=== PATIENT | female | born 1945 | race African-American/Black ===

== ENCOUNTER 2019-02-24 21:55 | Emergency (ER) | payer MEDICARE, MEDICAID ==
[~2019-02-24] VITALS: Ht 152.4 cm; Wt 70.0 kg
[~2019-02-24 21:55] MED LIST: AMLODIPINE10 MG OR; ANTIVERT25 MG PO; HYDROCHLOROT12.5 MG OR; HYDROCO/APAP1 T10 OR; LORTAB 10 OR; MELOXICAM15 MG OR; PLAVIX75 MG OR; SILVADENE1 % EX; SIMVASTATIN20 MG OR; ULTRAM50 MG OR; ZOFRAN ODT4 MG PO
[2019-02-24 23:09] VITALS: BP 168/80
== END 2019-02-24 23:20 | disposition home or self-care (01) ==
LOC: ED 21:55
DX: S80.12XA Contusion of left lower leg, initial encounter (principal); I10 Essential (primary) hypertension; W11.XXXA Fall on and from ladder, initial encounter; Y93.G3 Activity, cooking and baking; Y92.000 Kitchen of unspecified non-institutional (private) residence as the place of occurrence of the external cause

== ENCOUNTER 2019-09-01 20:15 | Inpatient (IN) | payer MEDICARE, MEDICAID ==
[~2019-09-01] VITALS: Ht 160 cm; Wt 69.5 kg
[2019-09-01 21:47] LABS: HEMATOCRIT 41.2 % (37.0-47.0); HEMOGLOBIN 13.6 g/dl (12.0-16.0); IMMATURE GRANULOCYTES 0.4 % (0.0-5.0); MEAN CELL VOLUME 85.7 fL CALC (80.0-100.0); MEAN CORPUSCULAR HGB 28.3 pG CALC (26.0-32.0); NEUT# 3.82 thou/uL (2.00-7.15); RED BLOOD COUNT 4.81 mill/uL (4.20-5.60); RED CELL DISTRI WIDTH 14.6 % (11.5-15.5)
[2019-09-01 22:02] LABS: ALBUMIN 4.4 g/dL (3.2-5.0); ALKALINE PHOSPHATASE 135 u/l (38-126); ANION GAP 13 (6-22 (CALC)); BILIRUBIN, TOTAL 0.5 mg/dL (0.0-1.4); BUN 19 mg/dL (8-23); BUN/CREATININE RATIO 15 (12-20 (CALC)); CARBON DIOXIDE 27 mmol/l (22-30); CHLORIDE 107 mmol/l (95-108); CREATININE 1.3 mg/dL (0.5-1.0); GFR 40 ML/MIN (>=60 (CALC)); GFR FOR AFR.AMER. 48 ML/MIN (>=60 (CALC)); POTASSIUM 4.1 mmol/l (3.5-5.1); SGOT/AST 39 u/l (9-36); SODIUM 143 mmol/l (137-146); TOTAL PROTEIN 7.9 g/dL (6.3-8.2)
[2019-09-01 22:04] LABS: PROTHROMBIN TIME 10.7 SECONDS (9.0-12.5)
[2019-09-02] VITALS (21 sets, daily range): BP systolic 127–179; BP diastolic 54–93
[2019-09-02] MEDS ORDERED: GABAPENTIN100 MG PO (02:16)
[2019-09-02] MEDS ORDERED: CARVEDILOL3.125 MG PO (02:17)
[2019-09-02] MEDS ORDERED: METOPROLOL SUCC50 MG PO (02:19)
[2019-09-02] MEDS ORDERED: ATORVASTATIN CA40 MG PO (02:21)
[2019-09-02] MEDS ORDERED: TIZANIDINE4 MG PO (02:21)
[2019-09-02] MEDS ORDERED: ZESTRIL40 MG PO (02:22)
[2019-09-02] MEDS ORDERED: PLAVIX75 MG PO (02:22)
[2019-09-02] MEDS ORDERED: NAPROSYN250 MG PO (02:24)
[2019-09-02 04:28] LABS: HEMATOCRIT 38.8 % (37.0-47.0); HEMOGLOBIN 12.9 g/dl (12.0-16.0); IMMATURE GRANULOCYTES 0.4 % (0.0-5.0); MEAN CORPUSCULAR HGB 28.6 pG CALC (26.0-32.0); MEAN CORPUSCULAR HGB CONC 33.2 g/L CALC (32.0-36.0); NEUT# 4.78 thou/uL (2.00-7.15); RED BLOOD COUNT 4.51 mill/uL (4.20-5.60); RED CELL DISTRI WIDTH 14.6 % (11.5-15.5)
[2019-09-02] MEDS ORDERED: PERCOCET 5/325M1 TAB PO (05:56)
[2019-09-03] VITALS (7 sets, daily range): BP systolic 142–178; BP diastolic 71–86
[2019-09-03] MEDS ORDERED: AMLODIPINE BESYL5 MG PO (08:58)
== END 2019-09-03 10:39 | disposition home or self-care (01) | DRG 305 ==
LOC: ED 20:15 → ED-I 23:15 → ED 09-02 00:35 → ICU 09-02 00:36
PROVIDERS: Emergency Medicine; ADMIT Internal Medicine; ATTEND Internal Medicine
PROC: 2Y41X5Z Packing of Nasal Region using Packing Material (ICD-10-PCS; principal; 2019-09-01)
DX: I16.0 Hypertensive urgency (principal); I10 Essential (primary) hypertension; R04.0 Epistaxis; I51.7 Cardiomegaly; F17.200 Nicotine dependence, unspecified, uncomplicated; M54.9 Dorsalgia, unspecified; G89.29 Other chronic pain; T46.5X6A Underdosing of other antihypertensive drugs, initial encounter; Z91.128 Patient's intentional underdosing of medication regimen for other reason; Z79.02 Long term (current) use of antithrombotics/antiplatelets

== ENCOUNTER 2020-05-03 00:22 | Emergency (ER) | payer MEDICARE, MEDICAID ==
[~2020-05-03] VITALS: Ht 157.5 cm; Wt 65.9 kg
[~2020-05-03 00:22] MED LIST changes: +AMLODIPINE BESYL5 MG PO; +ATORVASTATIN CA40 MG PO; +CARVEDILOL3.125 MG PO; +GABAPENTIN100 MG PO; +METOPROLOL SUCC50 MG PO; +NAPROSYN250 MG PO; +PERCOCET 5/325M1 TAB PO; +PLAVIX75 MG PO; +TIZANIDINE4 MG PO; +ZESTRIL40 MG PO
[2020-05-03] MEDS ORDERED: NAPROXEN DR500 MG PO (01:17)
[2020-05-03] MEDS ORDERED: COREG3.125 MG PO (01:18)
[2020-05-03 02:49] VITALS: BP 123/69
== END 2020-05-03 02:49 | disposition home or self-care (01) ==
LOC: ED 00:22
DX: I10 Essential (primary) hypertension (principal); R04.0 Epistaxis; F17.200 Nicotine dependence, unspecified, uncomplicated

== ENCOUNTER 2020-11-20 09:42 | Emergency (ER) | payer MEDICARE, MEDICAID ==
[~2020-11-20 09:42] MED LIST changes: +COREG3.125 MG PO; +NAPROXEN DR500 MG PO
[2020-11-20] MEDS ORDERED: CLOPIDOGREL75 MG PO (10:23)
[2020-11-20] MEDS ORDERED: NORVASC5 M1 PO (10:24)
[2020-11-20] MEDS ORDERED: PERCOCET 5/321 COMBO PO (10:25)
[2020-11-20 10:34] LABS: HEMATOCRIT 40.2 % (37.0-47.0); HEMOGLOBIN 13.1 g/dl (12.0-16.0); IMMATURE GRANULOCYTES 0.3 % (0.0-5.0); MEAN CELL VOLUME 87.4 fL CALC (80.0-100.0); MEAN CORPUSCULAR HGB 28.5 pG CALC (26.0-32.0); MEAN CORPUSCULAR HGB CONC 32.6 g/dL CAL (32.0-36.0); NEUT# 3.65 thou/uL (2.00-7.15); RED BLOOD COUNT 4.6 mill/uL (4.20-5.60); RED CELL DISTRI WIDTH 14.3 % (11.5-15.5)
[2020-11-20 10:55] LABS: ACT PARTIAL THROMBO TIME 23.7 SECONDS (20.0-32.5); PROTHROMBIN TIME 10.6 SECONDS (9.0-12.5)
[2020-11-20 11:35] VITALS: BP 159/79
[2021-03-25] MEDS ORDERED: PERCOCET 5/321 COMBO PO (09:49)
== END 2020-11-20 11:35 | disposition home or self-care (01) ==
LOC: ED 09:42
DX: R04.0 Epistaxis (principal); I10 Essential (primary) hypertension; E78.5 Hyperlipidemia, unspecified; I25.10 Atherosclerotic heart disease of native coronary artery without angina pectoris; F17.200 Nicotine dependence, unspecified, uncomplicated

== ENCOUNTER 2021-05-05 06:15 | Day surgery (SDC) | payer MEDICARE, MEDICAID ==
[~2021-05-05] VITALS: Ht 157.5 cm; Wt 68.0 kg
[~2021-05-05 06:15] MED LIST changes: +CLOPIDOGREL75 MG PO; +NORVASC5 M1 PO; +PERCOCET 5/321 COMBO PO
[2021-05-05 08:13] VITALS: BP 193/97
[2021-05-05] MEDS ORDERED: PERCOCET1 TA4 PO (08:36)
== END 2021-05-05 09:00 | disposition home or self-care (01) ==
LOC: ORM 06:15
PROVIDERS: ATTEND Anesthesiology Pain Medicine
DX: M54.59 Other low back pain (principal); M47.817 Spondylosis without myelopathy or radiculopathy, lumbosacral region; M51.36 Other intervertebral disc degeneration, lumbar region

== ENCOUNTER 2021-10-14 17:51 | Observation (INO) | payer MEDICARE, MEDICAID ==
[~2021-10-14] VITALS: Ht 157.5 cm; Wt 66.0 kg
[2021-10-14] VITALS (9 sets, daily range): BP systolic 107–217; BP diastolic 56–126
[~2021-10-14 17:51] MED LIST changes: +PERCOCET1 TA4 PO
[2021-10-14 18:43] LABS: HEMATOCRIT 41.8 % (37.0-47.0); HEMOGLOBIN 13.6 g/dl (12.0-16.0); IMMATURE GRANULOCYTES 0.1 % (0.0-5.0); MEAN CELL VOLUME 89.5 fL CALC (80.0-100.0); MEAN CORPUSCULAR HGB 29.1 pG CALC (26.0-32.0); MEAN CORPUSCULAR HGB CONC 32.5 g/dL CAL (32.0-36.0); NEUT# 3.31 thou/uL (2.00-7.15); RED BLOOD COUNT 4.67 mill/uL (4.20-5.60); RED CELL DISTRI WIDTH 14.5 % (11.5-15.5)
[2021-10-14 18:51] LABS: ALBUMIN 4.2 g/dL (3.2-5.0); ALKALINE PHOSPHATASE 133 u/l (38-126); ANION GAP 11 (6-22 (CALC)); BUN 17 mg/dL (8-23); BUN/CREATININE RATIO 13 (12-20 (CALC)); CARBON DIOXIDE 28 mmol/l (22-30); CHLORIDE 111 mmol/l (95-108); CREATININE 1.3 mg/dL (0.5-1.0); GFR 40 ML/MIN (>=60 (CALC)); GFR FOR AFR.AMER. 48 ML/MIN (>=60 (CALC)); POTASSIUM 3.9 mmol/l (3.5-5.1); SGOT/AST 45 u/l (9-36); SODIUM 146 mmol/l (137-146); TOTAL PROTEIN 7.8 g/dL (6.3-8.2)
[2021-10-14 18:54] LABS: BILIRUBIN, TOTAL 0.3 mg/dL (0.0-1.4)
[2021-10-14 19:03] LABS: MYOGLOBIN 26 ng/mL (0 - 62)
[2021-10-14 21:22] LABS: URINE BILIRUBIN - DIPSTICK NEGATIVE (NEGATIVE); URINE BLOOD DIPSTICK MODERATE (NEGATIVE); URINE COLOR YELLOW; URINE GLUCOSE - DIPSTICK NEGATIVE (NEGATIVE); URINE KETONE NEGATIVE (NEGATIVE); URINE LEUK ESTERASE NEGATIVE (NEGATIVE); URINE NITRITE - DIPSTICK NEGATIVE (Negative); URINE PROTEIN - DIPSTICK NEGATIVE (NEG-TRACE); URINE UROBILINOGEN - DIPSTICK 0.2 E.U./dL (0.2)
[2021-10-14 21:30] LABS: URINE BACTERIA FEW hpf; URINE SQUAMOUS EPITHELIAL CELL MODERATE EPI/hpf (0-FEW); URINE WBC 0-2 WBC/hpf (0-5)
[2021-10-15] VITALS (8 sets, daily range): BP systolic 139–186; BP diastolic 61–78
[2021-10-15 06:30] LABS: CHOLESTEROL HDL RATIO 1.9 (<4.4 (CALC)); CREATININE 1.3 mg/dL (0.5-1.0); MAGNESIUM 2.2 mg/dL (1.6-2.3)
[2021-10-15 06:32] LABS: POTASSIUM 4.7 mmol/l (3.5-5.1)
[2021-10-15] MEDS ORDERED: ZITHROMAX250 MG PO (11:32)
[2021-10-16] MEDS ORDERED: OMNICEF300 MG PO (03:01)
== END 2021-10-15 16:00 | disposition home or self-care (01) ==
LOC: ED 17:51 → ED-I 19:50 → ED 20:08 → MS2 20:09
PROVIDERS: Emergency Medicine; ADMIT Internal Medicine; ATTEND Internal Medicine
DX: R07.9 Chest pain, unspecified (principal); J18.9 Pneumonia, unspecified organism; I10 Essential (primary) hypertension; I25.10 Atherosclerotic heart disease of native coronary artery without angina pectoris; E78.00 Pure hypercholesterolemia, unspecified; M19.90 Unspecified osteoarthritis, unspecified site; M47.812 Spondylosis without myelopathy or radiculopathy, cervical region; G23.8 Other specified degenerative diseases of basal ganglia; F17.200 Nicotine dependence, unspecified, uncomplicated; Z79.02 Long term (current) use of antithrombotics/antiplatelets; Z20.822 Contact with and (suspected) exposure to COVID-19
CPT/HCPCS: J2060; Q9967

== ENCOUNTER 2021-12-16 18:51 | Emergency (ER) | payer MEDICARE, MEDICAID ==
[2021-12-16] VITALS (11 sets, daily range): BP systolic 127–168; BP diastolic 59–76
[~2021-12-16] VITALS: Ht 157.5 cm; Wt 68.0 kg
[~2021-12-16 18:51] MED LIST changes: +OMNICEF300 MG PO; +ZITHROMAX250 MG PO
[2021-12-16 20:03] LABS: HEMATOCRIT 39.8 % (37.0-47.0); IMMATURE GRANULOCYTES 0.3 % (0.0-5.0); MEAN CELL VOLUME 90.5 fL CALC (80.0-100.0); MEAN CORPUSCULAR HGB 29.5 pG CALC (26.0-32.0); MEAN CORPUSCULAR HGB CONC 32.7 g/dL CAL (32.0-36.0); NEUT# 3.7 thou/uL (2.00-7.15); RED BLOOD COUNT 4.4 mill/uL (4.20-5.60); RED CELL DISTRI WIDTH 13.3 % (11.5-15.5)
[2021-12-16 20:16] LABS: ALBUMIN 3.9 g/dL (3.2-5.0); ALKALINE PHOSPHATASE 111 u/l (38-126); ANION GAP 12 (6-22 (CALC)); BILIRUBIN, TOTAL 0.4 mg/dL (0.0-1.4); BUN 17 mg/dL (8-23); BUN/CREATININE RATIO 12 (12-20 (CALC)); CARBON DIOXIDE 25 mmol/l (22-30); CHLORIDE 109 mmol/l (95-108); CREATININE 1.3 mg/dL (0.5-1.0); GFR 40 ML/MIN (>=60 (CALC)); GFR FOR AFR.AMER. 48 ML/MIN (>=60 (CALC)); SGOT/AST 28 u/l (9-36); SODIUM 142 mmol/l (137-146); TOTAL PROTEIN 7.3 g/dL (6.3-8.2)
[2021-12-16 20:28] LABS: MYOGLOBIN 37 ng/mL (0 - 62)
[2021-12-16] MEDS ORDERED: ONDANSETRON4 MG PO (21:51)
[2021-12-16 22:24] LABS: URINE BILIRUBIN - DIPSTICK NEGATIVE (NEGATIVE); URINE BLOOD DIPSTICK SMALL (NEGATIVE); URINE COLOR YELLOW; URINE GLUCOSE - DIPSTICK NEGATIVE (NEGATIVE); URINE KETONE NEGATIVE (NEGATIVE); URINE LEUK ESTERASE NEGATIVE (NEGATIVE); URINE PROTEIN - DIPSTICK NEGATIVE (NEG-TRACE); URINE SPECIFIC GRAVITY 1.015; URINE UROBILINOGEN - DIPSTICK 0.2 E.U./dL (0.2)
[2021-12-16 22:30] LABS: URINE NITRITE - DIPSTICK NEGATIVE (Negative); URINE RBC 0-2 RBC/hpf (0-5); URINE WBC 0-2 WBC/hpf (0-5)
[2021-12-16 22:31] LABS: URINE SQUAMOUS EPITHELIAL CELL FEW EPI/hpf (0-FEW)
== END 2021-12-17 00:14 | disposition home or self-care (01) ==
LOC: ED 18:51
PROVIDERS: Emergency Medicine
DX: R55 Syncope and collapse (principal); I10 Essential (primary) hypertension; I25.10 Atherosclerotic heart disease of native coronary artery without angina pectoris; E78.00 Pure hypercholesterolemia, unspecified; F17.200 Nicotine dependence, unspecified, uncomplicated

== ENCOUNTER 2022-01-02 18:34 | Emergency (ER) | payer MEDICARE, OTHER ==
[~2022-01-02] VITALS: Ht 157.5 cm; Wt 65.0 kg
[~2022-01-02 18:34] MED LIST changes: +ONDANSETRON4 MG PO
[2022-01-02 19:29] LABS: HEMOGLOBIN 13.4 g/dl (12.0-16.0); IMMATURE GRANULOCYTES 0.1 % (0.0-5.0); MEAN CELL VOLUME 89.5 fL CALC (80.0-100.0); MEAN CORPUSCULAR HGB 29.3 pG CALC (26.0-32.0); MEAN CORPUSCULAR HGB CONC 32.7 g/dL CAL (32.0-36.0); NEUT# 4.12 thou/uL (2.00-7.15); RED BLOOD COUNT 4.58 mill/uL (4.20-5.60); RED CELL DISTRI WIDTH 13.4 % (11.5-15.5)
[2022-01-02 19:42] LABS: ALBUMIN 4.2 g/dL (3.2-5.0); ALKALINE PHOSPHATASE 102 u/l (38-126); AMYLASE 145 u/l (30-110); BUN 20 mg/dL (8-23); BUN/CREATININE RATIO 15 (12-20 (CALC)); CARBON DIOXIDE 24 mmol/l (22-30); CHLORIDE 110 mmol/l (95-108); CREATININE 1.3 mg/dL (0.5-1.0); GFR FOR AFR.AMER. 48 ML/MIN (>=60 (CALC)); GFR OTHER RACES 40 ML/MIN (>=60 (CALC)); SGOT/AST 40 u/l (9-36); SODIUM 141 mmol/l (137-146); TOTAL PROTEIN 7.8 g/dL (6.3-8.2)
[2022-01-02 19:43] LABS: ANION GAP 12 (6-22 (CALC)); POTASSIUM 4.7 mmol/l (3.5-5.1)
[2022-01-02 19:53] LABS: BILIRUBIN, TOTAL 0.6 mg/dL (0.0-1.4); MYOGLOBIN 38 ng/mL (0 - 62)
[2022-01-02] MEDS ORDERED: TAM75CAP PO (21:21)
[2022-01-02] MEDS ORDERED: PAXLOVID PO (21:21)
[2022-01-02] MEDS ORDERED: ZITHROMAX250 MG PO (21:51)
[2022-01-02 22:17] VITALS: BP 153/76
== END 2022-01-02 22:46 | disposition home or self-care (01) ==
LOC: ED 18:34
PROVIDERS: Emergency Medicine
DX: U07.1 COVID-19 (principal); J10.1 Influenza due to other identified influenza virus with other respiratory manifestations; R91.8 Other nonspecific abnormal finding of lung field; I10 Essential (primary) hypertension; I25.10 Atherosclerotic heart disease of native coronary artery without angina pectoris; E78.00 Pure hypercholesterolemia, unspecified; F17.210 Nicotine dependence, cigarettes, uncomplicated

== ENCOUNTER 2022-07-15 14:53 | Emergency (ER) | payer MEDICARE, MEDICAID ==
[~2022-07-15] VITALS: Ht 157.5 cm; Wt 61.2 kg
[~2022-07-15 14:53] MED LIST changes: +PAXLOVID PO; +TAM75CAP PO
[2022-07-15 15:39] VITALS: BP 151/80
[2022-07-15] MEDS ORDERED: AMOX/K CLAV875 M1 PO (15:49)
[2022-07-15] MEDS ORDERED: NAPROXEN DR375 M1 PO (15:49)
[2022-07-15 16:00] VITALS: BP 127/67
[2022-07-15 16:20] VITALS: BP 127/67
== END 2022-07-15 16:20 | disposition home or self-care (01) ==
LOC: ED 14:53
DX: K04.7 Periapical abscess without sinus (principal); S02.5XXA Fracture of tooth (traumatic), initial encounter for closed fracture; I10 Essential (primary) hypertension; E78.00 Pure hypercholesterolemia, unspecified; I25.10 Atherosclerotic heart disease of native coronary artery without angina pectoris; F17.200 Nicotine dependence, unspecified, uncomplicated; X58.XXXA Exposure to other specified factors, initial encounter

== ENCOUNTER 2024-09-01 09:25 | Emergency (ER) | payer MEDICARE, MEDICAID ==
[2024-09-01] VITALS (16 sets, daily range): BP systolic 132–187; BP diastolic 62–113
[~2024-09-01] VITALS: Ht 157.5 cm; Wt 86.0 kg
[~2024-09-01 09:25] MED LIST changes: +AMOX/K CLAV875 M1 PO; +NAPROXEN DR375 M1 PO
[2024-09-01] MEDS ORDERED: OXYCODO-APAP1 TA2 PO (11:25)
[2024-09-01] MEDS ORDERED: LYRICA25 MG PO (11:28)
[2024-09-01 13:04] LABS: BASO% 0.5 % (0-3); EOS% 1.9 % (0-8); HEMATOCRIT 37.9 % (37.0-47.0); HEMOGLOBIN 12.5 g/dl (12.0-16.0); IMMATURE GRANULOCYTES 0.1 % (0.0-5.0); LYMPH% 36.1 % (15-41); MEAN CELL VOLUME 87.5 fL CALC (80.0-100.0); MEAN CORPUSCULAR HGB 28.9 pG CALC (26.0-32.0); MONO% 6.5 % (2-13); NEUT# 4.07 thou/uL (2.00-7.15); NEUT% 54.9 % (42-76); RED BLOOD COUNT 4.33 mill/uL (4.20-5.60); RED CELL DISTRI WIDTH 14.4 % (11.5-15.5)
[2024-09-01 13:13] LABS: BILIRUBIN, TOTAL 0.7 mg/dL (0.02-1.3); CREATININE 1.2 mg/dL (0.5-1.0); POTASSIUM 4.1 mmol/l (3.5-5.1); TOTAL PROTEIN 7.1 g/dL (6.3-8.2)
[2024-09-01 13:25] LABS: URINE BILIRUBIN - DIPSTICK Negative (NEGATIVE); URINE BLOOD DIPSTICK Moderate (NEGATIVE); URINE GLUCOSE - DIPSTICK Negative (NEGATIVE); URINE KETONE Negative (NEGATIVE); URINE LEUK ESTERASE Negative (NEGATIVE); URINE NITRITE - DIPSTICK Negative (Negative); URINE PROTEIN - DIPSTICK >=300 mg/dL (NEG-TRACE)
[2024-09-01 13:28] LABS: URINE COLOR Bloody
[2024-09-01 13:29] LABS: URINE RBC >100 RBC/hpf (0-5); URINE WBC 0-2 WBC/hpf (0-5)
[2024-09-01] MEDS ORDERED: CEPHALEXIN500 M1 PO (15:36)
[2024-09-01] MEDS ORDERED: CEPHALEXIN MONOHYDRATE 500 MG/CAP PO ONE (15:40)
== END 2024-09-01 16:04 | disposition home or self-care (01) ==
LOC: ED 09:25
PROVIDERS: Family Medicine
DX: N32.9 Bladder disorder, unspecified (principal); I10 Essential (primary) hypertension; I25.10 Atherosclerotic heart disease of native coronary artery without angina pectoris; E78.00 Pure hypercholesterolemia, unspecified; Z72.0 Tobacco use